=== PATIENT | male | born 1995 | race Asian ===

== ENCOUNTER 2018-08-08 23:33 | Inpatient (IN) | payer MEDICAID, OTHER ==
[~2018-08-08] VITALS: Ht 162.6 cm; Wt 97.5 kg
[~2018-08-08 23:33] MED LIST: RISP3 PO
[2018-08-09 01:20] LABS: BASOPHILS % (AUTO) 0.7 % (0.0-2.0); EOSINOPHILS % (AUTO) 2.1 % (1.0-6.0); HEMATOCRIT 46.8 % (41-53); HEMOGLOBIN 16.2 g/dL (13.5-17.5); LYMPHOCYTES # (AUTO) 2.4 K/uL (1.0-4.8); LYMPHOCYTES % (AUTO) 23.2 % (22.0-44.0); MEAN CORPUSCULAR HEMOGLOBIN 30.5 pg (26.0-34.0); MEAN CORPUSCULAR HGB CONC 34.7 G/dL (31.0-37.0); MEAN CORPUSCULAR VOLUME 88 fL (80-100); MONOCYTES # (AUTO) 0.7 K/uL (0.1-1.0); PLATELET COUNT (AUTO) 263 K/uL (150-450); RED BLOOD CELL COUNT(AUTO) 5.32 MIL/uL (4.50-5.90); RED CELL DISTRIBUTION WIDTH 13.6 % (11.5-14.5)
[2018-08-09 01:23] LABS: ANION GAP 8 mmol/L (8-16); CALCIUM, TOTAL 9.5 mg/dL (8.8-10.5); CARBON DIOXIDE 29 mmol/L (22-29); CHLORIDE 103 mmol/L (98-107); GLOMERULAR FILTR. RATE CALC > 60 mL/min (>60); GLUCOSE,RANDOM 112 mg/dL (70-110); POTASSIUM 3.9 mmol/L (3.5-5.1); SODIUM SERUM 140 mmol/L (136-145); UREA NITROGEN, BLOOD 20 mg/dL (7-18)
[2018-08-09 01:29] LABS: ALANINE AMINOTRANSFERASE 87 U/L (12-78); ALBUMIN 4.2 g/dL (3.4-5.0); ALKALINE PHOSPHATASE 102 U/L (46-116); ASPARTATE AMINOTRANSFERASE 36 U/L (15-37); BILIRUBIN,TOTAL 0.2 mg/dL (0.1-1.0)
[2018-08-09] MEDS ORDERED: ZOLPIDEM TARTRATE 10 MG TABLET PO PRN (01:45)
[2018-08-09 01:53] LABS: AMPHET/METH SCREEN,URINE NEGATIVE (NEGATIVE); BARBITURATE SCREEN, URINE NEGATIVE (NEGATIVE); BENZODIAZEPINES SCREEN,URINE NEGATIVE (NEGATIVE); CANNABINOID SCREEN,URINE NEGATIVE (NEGATIVE); COCAINE SCREEN,URINE NEGATIVE (NEGATIVE); METHADONE SCREEN, URINE NEGATIVE (NEGATIVE); OPIATE SCREEN,URINE NEGATIVE (NEGATIVE)
[2018-08-09 01:54] LABS: PHENCYCLIDINE SCREEN,URINE NEGATIVE (NEGATIVE)
[2018-08-09] MEDS ORDERED: HALOPERIDOL LACTATE 5 MG/ML VIAL IM ONE (02:45)
[2018-08-09] MEDS ORDERED: LORazepam 2 MG/ML VIAL IM ONE (02:45)
[2018-08-09] MEDS ORDERED: DiphenhydrAMINE HCL 50 MG/ML VIAL IM ONE (02:45)
[2018-08-09] MEDS: HALOPERIDOL 5 MG TABLET PO PRN ×2 (08:47→16:40)
[2018-08-09] MEDS: LORazepam 2 MG TABLET PO PRN ×2 (08:47→16:40)
[2018-08-09 16:00] VITALS: BP 145/89
[2018-08-09] MEDS ORDERED: MAG HYDROX/AL HYDROX/SIMETH ES 30 ML SUSPENSION UDCUP PO PRN (16:30)
[2018-08-09] MEDS ORDERED: ALBUTEROL SULFATE HFA 90 MCG/PUFF 8 GM INHALER IH PRN (16:30)
[2018-08-09] MEDS ORDERED: MAGNESIUM HYDROXIDE SUSPENSION 30 ML UDCUP PO PRN (16:30)
[2018-08-09] MEDS ORDERED: LOPERAMIDE HCL 2 MG CAPSULE PO PRN (16:30)
[2018-08-09] MEDS ORDERED: PETROLATUM,WHITE 71 GM JELLY TP PRN (16:30)
[2018-08-09] MEDS ORDERED: ACETAMINOPHEN 325 MG TABLET PO PRN (16:30)
[2018-08-09] MEDS ORDERED: ONDANSETRON HCL 4 MG TABLET PO PRN (16:30)
[2018-08-09] MEDS ORDERED: IBUPROFEN 400 MG TABLET PO PRN (16:30)
[2018-08-09] MEDS ORDERED: DOCUSATE SODIUM 100 MG CAPSULE PO PRN (16:30)
[2018-08-09] MEDS ORDERED: CloNIDine HCL 0.1 MG TABLET PO PRN (16:30)
[2018-08-09] MEDS ORDERED: GuaiFENesin/D-METHORPHAN [SUGAR-FREE] 200-20MG/10 ML SYRUP UDCUP PO PRN (16:30)
[2018-08-10 00:09] VITALS: BP 136/69
[2018-08-10 08:01] LABS: BASOPHILS % (AUTO) 0.5 % (0.0-2.0); EOSINOPHILS % (AUTO) 1.4 % (1.0-6.0); HEMATOCRIT 45.6 % (41-53); HEMOGLOBIN 15.4 g/dL (13.5-17.5); LYMPHOCYTES # (AUTO) 2.3 K/uL (1.0-4.8); LYMPHOCYTES % (AUTO) 19.3 % (22.0-44.0); MEAN CORPUSCULAR HEMOGLOBIN 30.6 pg (26.0-34.0); MEAN CORPUSCULAR HGB CONC 33.9 G/dL (31.0-37.0); MEAN CORPUSCULAR VOLUME 90 fL (80-100); MONOCYTES # (AUTO) 0.7 K/uL (0.1-1.0); NEUTROPHILS # (AUTO) 8.5 K/uL (1.8-7.7); NEUTROPHILS % (AUTO) 72.8 % (40.0-70.0); PLATELET COUNT (AUTO) 262 K/uL (150-450); RED BLOOD CELL COUNT(AUTO) 5.04 MIL/uL (4.50-5.90); RED CELL DISTRIBUTION WIDTH 13.5 % (11.5-14.5)
[2018-08-10 08:06] VITALS: BP 143/84
[2018-08-10] MEDS: HALOPERIDOL 5 MG TABLET PO PRN (08:26)
[2018-08-10] MEDS: LORazepam 2 MG TABLET PO PRN ×3 (08:26→21:31)
[2018-08-10 08:55] LABS: ALANINE AMINOTRANSFERASE 82 U/L (12-78); ALKALINE PHOSPHATASE 93 U/L (46-116); ANION GAP 9 mmol/L (8-16); ASPARTATE AMINOTRANSFERASE 38 U/L (15-37); BILIRUBIN,TOTAL 0.3 mg/dL (0.1-1.0); CARBON DIOXIDE 28 mmol/L (22-29); CHLORIDE 101 mmol/L (98-107); CHOL/HDL RATIO 3.2 (4.2-7.3); CHOLESTEROL 220 mg/dL (131-200); CREATININE 0.71 mg/dL (0.60-1.30); GLOMERULAR FILTR. RATE CALC > 60 mL/min (>60); GLUCOSE,RANDOM 115 mg/dL (70-110); HDL CHOLESTEROL 69 mg/dL (40-60); LDL CHOL (CALC.) 132 mg/dL (0-130); POTASSIUM 4.4 mmol/L (3.5-5.1); SODIUM SERUM 138 mmol/L (136-145); THYROID STIMULATING HORMONE 1.42 uIU/mL (0.36-3.74); TOTAL PROTEIN, SERUM 7.4 g/dL (6.4-8.2); TRIGLYCERIDES 95 mg/dL (15-150); UREA NITROGEN, BLOOD 17 mg/dL (7-18)
[2018-08-10 09:32] LABS: HEMOGLOBIN A1C 5.4 % (4.5-6.2)
[2018-08-10] MEDS: RisperiDONE 3 MG TABLET PO SCH ×2 (10:24→16:23)
[2018-08-10 20:51] VITALS: BP 141/86
[2018-08-11 01:57] VITALS: BP 142/89
[2018-08-11 08:00] VITALS: BP 148/89
[2018-08-11] MEDS: RisperiDONE 3 MG TABLET PO SCH ×2 (08:42→16:36)
[2018-08-11] MEDS: LORazepam 2 MG TABLET PO PRN ×2 (08:42→14:47)
[2018-08-11 16:00] VITALS: BP 157/96
[2018-08-11] MEDS ORDERED: AmLODIPine BESYLATE 2.5 MG TABLET PO SCH (16:15)
[2018-08-11] MEDS ORDERED: AmLODIPine BESYLATE 5 MG TABLET PO ONE (16:30)
[2018-08-11] MEDS ORDERED: AmLODIPine BESYLATE 2.5 MG TABLET PO ONE (16:30)
[2018-08-11 18:32] VITALS: BP 141/67
[2018-08-12 00:42] VITALS: BP 144/84
[2018-08-12] MEDS: RisperiDONE 3 MG TABLET PO SCH ×2 (08:11→16:30)
[2018-08-12] MEDS: AmLODIPine BESYLATE 2.5 MG TABLET PO SCH (08:11)
[2018-08-12 08:53] VITALS: BP 138/85
[2018-08-12 16:00] VITALS: BP 133/72
[2018-08-12] MEDS: LORazepam 2 MG TABLET PO PRN (16:30)
[2018-08-13 00:18] VITALS: BP 142/89
[2018-08-13] MEDS: RisperiDONE 3 MG TABLET PO SCH ×2 (08:33→16:54)
[2018-08-13] MEDS: AmLODIPine BESYLATE 2.5 MG TABLET PO SCH (08:33)
[2018-08-13 08:43] VITALS: BP 149/95
[2018-08-13 16:37] VITALS: BP 139/80
[2018-08-13] MEDS: LORazepam 2 MG TABLET PO PRN (16:54)
[2018-08-13] MEDS: HALOPERIDOL 5 MG TABLET PO PRN (16:54)
[2018-08-14 05:25] VITALS: BP 135/92
[2018-08-14] MEDS: AmLODIPine BESYLATE 2.5 MG TABLET PO SCH (08:07)
[2018-08-14] MEDS: RisperiDONE 3 MG TABLET PO SCH ×2 (08:07→16:36)
[2018-08-14 10:19] VITALS: BP 140/69
[2018-08-14 16:00] VITALS: BP 138/70
[2018-08-14] MEDS: LORazepam 2 MG TABLET PO PRN (16:37)
[2018-08-14] MEDS ORDERED: DiphenhydrAMINE HCL 50 MG/ML VIAL ONE (17:27)
[2018-08-14] MEDS ORDERED: HALOPERIDOL LACTATE 5 MG/ML VIAL ONE (17:27)
[2018-08-14] MEDS ORDERED: LORazepam 2 MG/ML VIAL ONE (17:27)
[2018-08-14] MEDS ORDERED: DiphenhydrAMINE HCL 50 MG/ML VIAL IM ONE (17:30)
[2018-08-14] MEDS ORDERED: LORazepam 2 MG/ML VIAL IM ONE (17:30)
[2018-08-14] MEDS ORDERED: HALOPERIDOL LACTATE 5 MG/ML VIAL IM ONE (17:30)
[2018-08-14 18:00] VITALS: BP 119/63
[2018-08-15 06:27] VITALS: BP 125/72
[2018-08-15 08:06] VITALS: BP 139/88
[2018-08-15] MEDS: RisperiDONE 3 MG TABLET PO SCH ×2 (09:36→16:25)
[2018-08-15] MEDS: AmLODIPine BESYLATE 2.5 MG TABLET PO SCH (09:36)
[2018-08-15 16:00] VITALS: BP 138/87
[2018-08-15] MEDS: HALOPERIDOL 5 MG TABLET PO PRN (16:25)
[2018-08-15] MEDS: LORazepam 2 MG TABLET PO PRN (16:25)
[2018-08-16 00:47] VITALS: BP 140/67
[2018-08-16] MEDS: HALOPERIDOL 5 MG TABLET PO PRN ×2 (08:12→16:11)
[2018-08-16] MEDS: AmLODIPine BESYLATE 2.5 MG TABLET PO SCH (08:12)
[2018-08-16] MEDS: RisperiDONE 3 MG TABLET PO SCH ×2 (08:12→16:11)
[2018-08-16 09:27] VITALS: BP 140/82
[2018-08-16] MEDS: LORazepam 2 MG TABLET PO PRN ×2 (09:58→16:11)
[2018-08-16 16:09] VITALS: BP 138/83
[2018-08-17 00:17] VITALS: BP 135/92
[2018-08-17] MEDS: AmLODIPine BESYLATE 2.5 MG TABLET PO SCH (08:37)
[2018-08-17] MEDS: RisperiDONE 3 MG TABLET PO SCH ×2 (08:37→16:11)
[2018-08-17 09:10] VITALS: BP 140/76
[2018-08-17 17:33] VITALS: BP 155/85
[2018-08-17] MEDS: LORazepam 2 MG TABLET PO PRN (17:40)
[2018-08-17] MEDS: HALOPERIDOL 5 MG TABLET PO PRN (17:41)
[2018-08-18 00:26] VITALS: BP 142/83
[2018-08-18 08:19] VITALS: BP 133/75
[2018-08-18] MEDS: RisperiDONE 3 MG TABLET PO SCH (08:32)
[2018-08-18] MEDS: AmLODIPine BESYLATE 2.5 MG TABLET PO SCH (08:32)
[2018-08-18] MEDS ORDERED: AMLO2.5T4 PO (13:20)
== END 2018-08-18 15:10 | disposition home or self-care (01) | DRG 750 ==
LOC: EMS 23:34 → B3A 08-09 13:36
PROVIDERS: ADMIT Psychiatry & Neurology Psychiatry; ATTEND Psychiatry & Neurology Psychiatry
DX: F20.0 Paranoid schizophrenia (principal); R45.851 Suicidal ideations; R45.850 Homicidal ideations; I10 Essential (primary) hypertension; R00.0 Tachycardia, unspecified; F41.9 Anxiety disorder, unspecified
CPT/HCPCS: 83036; 84443; 87081; 90686; 96372; G0480; J1200; J1630; J2060